=== PATIENT | male | born 1955 | race Caucasian/White ===

== ENCOUNTER 2023-12-28 06:51 | Day surgery (SDC) | payer MEDICARE, SELFPAY ==
[2023-12-14 14:20] VITALS: BMI 24.8
--- NOTE | 2023-12-28 07:13 | PM.HPGS ---
History of Present Illness History of Present Illness Chief complaint: Dupuytrens Contrature Right Small Finger Narrative: Patient seen and examined in pre-operative holding area. No interval change in medical history or symptoms. Patient recalls previous discussion of benefits and alternatives to procedure. Continues to desire to proceed with right small finger fasciectomy and chin lesion excision. Reviewed procedure, post-op expectations and risks including but not limited to bleeding, infection, injury to tendon/nerve/vessel, decreased hand function, stiffness, RSD, no change or worsening of symptoms, recurrence, incomplete release. I discussed the possible use of assistants and their participation in the case. Patient stated understanding and signed the consent form wishing to proceed. Review of Systems Review of Systems: All systems reviewed & are unremarkable except as noted in HPI and below PMFSH Social History Social History Smoking status: Never smoker Second hand tobacco smoke exposure: No Alcohol intake: current Drinks per week: 0 Alcohol use details: RARE Substance use: never Substance use type: does not use Do You Feel Safe in your Home?: Yes Lack of Transportation: No Lack of Food: Never True Current Housing: I Have Housing Concerned About Future Housing: No Difficulty Paying Gas/Electric Bills: No Difficulty Paying for Meds: No Currently Unemployed: No Education: High School Diploma/GED Difficulty w/ Childcare or Family Care: No Living arrangements: with family Spiritual care concerns: No Meds Home Medications and Allergies Home Medications Medication Instructions Recorded Confirmed Type alprazolam 0.25 mg tablet 0.25 mg PO DAILY PRN Anxiety 11/27/23 12/28/23 History fluticasone propionate 50 2 spray intranasal DAILY 11/27/23 12/28/23 History mcg/actuation nasal spray,suspension (Flonase Allergy Relief) tramadol 50 mg tablet 50 mg PO Q6H PRN pain #12 tabs 12/28/23 Rx Allergies Allergy/AdvReac Type Severity Reaction Status Date / Time No Known Allergies Allergy Verified 12/28/23 08:13 Exam Narrative: unchanged Assessment and Plan Assessment and plan (1) Dupuytren contracture: Code(s): M72.0 - Palmar fascial fibromatosis [Dupuytren] Status: Acute Assessment and Plan: cont as above
--- NOTE | 2023-12-28 07:13 | W.PM.PROC2 ---
Procedure Note - Detailed Date of Procedure 12/28/23 Pre-op Diagnosis Dupuytrens Contrature Right Small Finger and chin lesion Post-op Diagnosis Same Procedure Performed right small finger fasciectomy and chin lesion excision Surgeon Leeanna Espinoza MD Hydrodynamics Teacher gloria callejas [facility] Anesthesia MAC Description of Procedure INFORMED CONSENT: The patient was seen and examined and marked in the pre-op area.? The patient signed the consent form. PROCEDURE IN DETAIL:The patient taken back to OR on the stretcher in supine position. Time out performed with anesthesia, surgeon and staff agreeing on patient's name site and surgery to be performed SCDs were placed on the lower extremities and inflated. A tourniquet was placed on {right} upper extremity and antibiotics given IV After anesthesia administered sedation I injected {5}cc 1%lido and 0.5% marcaine plain at the operative site in the palm and3cc 1% lido with epi for the chin lesion The?{right upper extremity}?was prepped and draped in sterile fashion the??{right upper extremity} was? exsanguinated with Esmarch bandage and tourniquet inflated to 250mmHg I proceeded with making an incision over the right small finger Dupuytren's cord from its origin near the palm of going obliquely across flexion creases across the pipjoint. This was done through skin and dermis with a 15 blade scalpel. I proceeded with elevating skin flaps to expose the fascial cord. I circumferentially dissected around the cord proximally. I transected the cord near its origin proximally. I proceeded with anterograde dissection of the cord until I was able to fully extend the pipjoint. The neurovascular bundles were identified and protected throughout the procedure. I irrigated with normal saline closure with 4-0 chromic. I next took my attention to the chin cyst or proceeded with making elliptical incision around affected skin over cyst through skin and dermis with a 15 blade scalpel. I dissection around the cyst. I extended my incisions proximally and distally to excise excess tissue for expected dog ears. I then proceeded with closure with 5-0 monocryl for dermis and subcuticular. diameter of cyst measured 1.2cm. length of closure was 1.6cm A dressing of xeroform, 4x4, neva, and an ulnar gutter splint in straight postiion was applied for patient safety, security, and comfort and secured with an antonio bandage after the tourniquet was let down noting the hand was warm and well perfused. mastisol, steri-strips, 4x4, pressure dressing was used for the chin. The patient was then awaken from anesthesia and transferred to the recovery room in stable condition.? Complications - none EBL- 0cc Disposition - home in stable conditions gloria callejas pa-c was essential for positioning, retraction, closure and dressing placement. [facility] [place] Surgery - Charge Forward: Surgery Billing ([id number] for gloria)
--- NOTE | 2023-12-28 07:19 | P.PNAN_ITS ---
Anes - Initial Pre Proc Eval Procedure: Operation Date: 12/28/23 09:15 Proposed Procedures p Right Small Finger Fasciectomy - Leeanna Espinoza MD s Excision Cyst-Chin - Leeanna Espinoza MD Date/Time: 12/28/23 07:19 Surgeon: Leeanna Espinoza MD Pre Op Diagnosis: Dupuytrens Contrature Right Small Finger Patient Data Age: 68 Gender: M Height: 1.7 m Weight: 72 kg Allergies Allergy/AdvReac Type Severity Reaction Status Date / Time No Known Allergies Allergy Verified 12/28/23 08:13 Home Medications Medication Instructions Recorded Confirmed Type alprazolam 0.25 mg tablet 0.25 mg PO DAILY PRN Anxiety 11/27/23 12/28/23 History fluticasone propionate 50 2 spray intranasal DAILY 11/27/23 12/28/23 History mcg/actuation nasal spray,suspension (Flonase Allergy Relief) tramadol 50 mg tablet 50 mg PO Q6H PRN pain #12 tabs 12/28/23 Rx Patient hx anesthesia problems: none Family hx anesthesia problems: none Results Review: All pre-operative results and documents have been reviewed as part of the pre- operative evaluation. [facility] Social History Social History Smoking status: Never smoker Second hand tobacco smoke exposure: No Alcohol intake: current Drinks per week: 0 Alcohol use details: RARE Substance use: never Substance use type: does not use Do You Feel Safe in your Home?: Yes Lack of Transportation: No Lack of Food: Never True Current Housing: I Have Housing Concerned About Future Housing: No Difficulty Paying Gas/Electric Bills: No Difficulty Paying for Meds: No Currently Unemployed: No Education: High School Diploma/GED Difficulty w/ Childcare or Family Care: No Living arrangements: with family Spiritual care concerns: No Anes - Eval Final PreProcedure Day of Procedure 12/28/23 07:19 Patient weight: normal Heart: regular rate and rhythm Lungs: clear to auscultation Airway: Mallampati scale class 1 Neurological: alert and oriented Last oral intake: >/= 8 hours ASA classification: II Emergent: no Anesthetic plan: proceed Anesthesia type and monitoring: general GIVS Results Review: All pre-operative results and documents have been reviewed as part of the pre- operative evaluation. Informed Consent: The patient's anesthetic plan and its attendant risks and benefits were discussed with the patient/family/POA. Questions were solicited and answers provided to the satisfaction of the patient/family/POA.
[2023-12-28 08:19] VITALS: BP 126/86; PULSE 65; RESP 17; TEMP 36.4; O2SAT 100
[2023-12-28] MEDS: LACTATED RINGERS 1,000 ML 150 ML IV CONT (08:48)
--- NOTE | 2023-12-28 08:52 | SUR.PREOP ---
Patient became lightheaded during placement of IV. Cool cloth applied to forehead. HOB reduced. Emotional support given.
[2023-12-28] MEDS: LIDOCAINE HCL 1% LOCAL INJ 10 ML VIAL 2 ML INFILTRATE (09:59)
[2023-12-28] MEDS: BUPivacaine HCL 0.5% 10 ML AMP 2 ML INFILTRATE (10:00)
[2023-12-28] MEDS: LIDO 1%/EPINEPHRINE 1:100,000 20 ML VIAL 5 ML INFILTRATE (10:02)
[2023-12-28 10:15] VITALS: BP 106/49; PULSE 64; RESP 16; O2SAT 97
--- NOTE | 2023-12-28 10:22 | WPDANESPN ---
Anes - Prog Note Post-Op Date/Time: 12/28/23 10:22 Cardiovascular status: normal Respiratory status: normal Airway patency: baseline Mental status: baseline Post-Op hydration status: normal Vital Signs: Last Vital Signs Temp 36.4 C L 12/28/23 08:19 Pulse 65 12/28/23 08:19 Resp 17 12/28/23 08:19 BP 126/86 12/28/23 08:19 Pulse Ox 100 12/28/23 08:19 O2 Del Method Room Air 12/28/23 08:19 Pain Score (VAS): 0 Post-procedural complaints: none Patient Feedback: Patient satisfied with anesthetic care.
[2023-12-28 10:40] VITALS: BP 105/69; PULSE 63; RESP 16; O2SAT 98
== END 2023-12-28 10:50 | disposition home or self-care (01) ==
PROVIDERS: PCP Student in an Organized Health Care Education/Training Program; Visit Provider Plastic Surgery
PROC: (CPT 26045; principal; 2023-12-28 09:15)
PROC: (CPT 26123; 2023-12-28 09:15)
DX: M72.0 Palmar fascial fibromatosis [Dupuytren] (principal); R22.0 Localized swelling, mass and lump, head
CPT/HCPCS: 26123; 21011

== ENCOUNTER 2023-12-28 08:32 | Outpatient (NON) | payer MEDICARE, OTHER, SELFPAY | END 2023-12-28 08:33 | disposition home or self-care (01) | LOC: ANHLAB 12-29 08:35 | PROVIDERS: PCP Student in an Organized Health Care Education/Training Program; Visit Provider Plastic Surgery | DX: M72.0 Palmar fascial fibromatosis [Dupuytren] (principal) | CPT/HCPCS: 88304; 88305 ==